=== PATIENT | female | born 1955 | race Caucasian/White ===

== ENCOUNTER 2022-11-09 14:53 | Emergency (ER) | payer OTHER ==
[2022-11-09 15:08] VITALS: RESP 20; BMI 27.4
[2022-11-09] MEDS ORDERED: ACETAMINOPHEN 1000 MG/100 ML BAG IVPB ONE (16:28)
[2022-11-09] MEDS ORDERED: ACETAMINOPHEN INJECTION 100 ML IVPB ONE (16:33)
[2022-11-09 17:13] LABS: BASO % 0.3 % (0-2.0); EOS % 1.3 % (0-4.5); HEMATOCRIT 39.9 % (32.4-45.2); HEMOGLOBIN 13.2 GM/dL (10.7-15.3); LYMPH % 23.6 % (8-40); MCH 28.7 pg (25.7-33.7); MCHC 33.1 g/dl (32.0-36.0); MEAN CELL VOLUME 86.7 fl (80-96); MEAN PLT VOLUME 7.3 fl (7.5-11.1); MONO % 5.3 % (3.8-10.2); NEUT % 69.5 % (42.8-82.8); PLATELET COUNT 292 10^3/uL (134-434); RBC 4.59 M/mm3 (3.60-5.2); RDW 13.1 % (11.6-15.6); WHITE BLOOD COUNT 11.8 K/mm3 (4.0-10.0)
[2022-11-09 17:20] LABS: CALCIUM 9.4 mg/dL (8.5-10.1)
[2022-11-09 17:21] LABS: BLOOD UREA NITROGEN 15.4 mg/dL (7-18)
[2022-11-09 17:24] LABS: CREATININE 0.8 mg/dL (0.55-1.3)
[2022-11-09 19:48] VITALS: BP 159/80; PULSE 65; TEMP 97.8
== END 2022-11-09 22:12 | disposition home or self-care (01) ==
LOC: JER 14:53
PROC: 3E0333Z Introduction of Anti-inflammatory into Peripheral Vein, Percutaneous Approach (ICD-10-PCS; principal; 2022-11-09)
DX: R07.9 Chest pain, unspecified (principal); V43.62XA Car passenger injured in collision with other type car in traffic accident, initial encounter
CPT/HCPCS: 36415; 71260-TC; 80048; 84484; 85025; 93005; 93010; 99285-25; Q9967